=== PATIENT | female | born 1955 | race Caucasian/White ===

== ENCOUNTER → 2017-08-27 | Outpatient (CLI) | payer BC, OTHER ==
[~2017-08-27] MED LIST: COZAAR 25MG25 MG/TAB; GLUCOPHAGE XR500 M1; PRAVACHOL 40MG40 MG PO; TRAMADOL PO; VICTOZA6 MG/ML SC
== END ==
LOC: MC.RAD 13:20
DX: Z12.31 Encounter for screening mammogram for malignant neoplasm of breast (principal)

== ENCOUNTER → 2017-11-07 | Outpatient (CLI) | payer BC, OTHER | LOC: COL.VAS 08:40 | DX: Z01.810 Encounter for preprocedural cardiovascular examination (principal); I34.0 Nonrheumatic mitral (valve) insufficiency; I37.1 Nonrheumatic pulmonary valve insufficiency; I44.7 Left bundle-branch block, unspecified; Q21.1 Atrial septal defect; I10 Essential (primary) hypertension ==

== ENCOUNTER → 2018-10-21 | Outpatient (CLI) | payer BC, OTHER | LOC: MC.RAD 10:42 | DX: Z12.31 Encounter for screening mammogram for malignant neoplasm of breast (principal); N63.10 Unspecified lump in the right breast, unspecified quadrant; N63.20 Unspecified lump in the left breast, unspecified quadrant ==

== ENCOUNTER → 2019-12-21 | Outpatient (CLI) | payer OTHER | LOC: MC.RAD 14:54 | DX: Z12.31 Encounter for screening mammogram for malignant neoplasm of breast (principal) ==

== ENCOUNTER → 2021-10-10 | Outpatient (CLI) | payer OTHER | LOC: MC.RAD 08-27 13:30 | DX: Z12.31 Encounter for screening mammogram for malignant neoplasm of breast (principal); N60.12 Diffuse cystic mastopathy of left breast; N64.9 Disorder of breast, unspecified ==

== ENCOUNTER → 2022-04-18 | Outpatient (CLI) | payer OTHER | LOC: MC.RAD 09:06 | DX: N60.02 Solitary cyst of left breast (principal) ==

== ENCOUNTER → 2022-11-28 | Outpatient (CLI) | payer MEDICARE, BC | LOC: MC.RAD 09:12 | DX: Z12.31 Encounter for screening mammogram for malignant neoplasm of breast (principal) ==

== ENCOUNTER 2023-10-29 10:00 | Outpatient (RCR) | payer MEDICARE, BC ==
[~2023-10-29 10:00] MED LIST changes: +ASPIRIN 81M81 MG/TA2; +BASAGLAR K100 UNIT/1; +BETIMOL 0.5% OPH5 ML; +CARAFATE 1GM1 G PO; +CELEBREX 200MG200 MG; +CYMBALTA 60MG60 MG; +GLUCOPHAGE1000 MG; +HYZAAR 12.5 MG-1 TAB; +MAGNESIUM CITR100 MG; +NATURAL FISH1200 MG; +NEPHRON FA TAB1 EACH; +PRILOTC PO; +SINGULAIR 110 MG/TAB; +THE MEDICINE S200 M2; +XALATAN EYE DROPS
== END 2023-11-02 | disposition home or self-care (01) ==
LOC: PT.GENESIS
DX: M62.830 Muscle spasm of back (principal)

== ENCOUNTER 2023-12-15 14:30 | Outpatient (RCR) | payer MEDICARE, BC ==
[2024-02-02] MEDS ORDERED: HYZAAR 12.5 MG-1 TAB PO (09:01)
[2024-02-02] MEDS ORDERED: NORVASC 5MG5 MG/TAB PO (09:02)
[2024-02-02] MEDS ORDERED: GLUCOPHAGE500 MG/TAB PO (09:03)
[2024-02-02] MEDS ORDERED: BASAGLAR K100 UNIT/1 SQ (09:04)
[2024-02-02] MEDS ORDERED: SINGULAIR 110 MG/TAB PO (09:04)
[2024-02-02] MEDS ORDERED: XALATAN EYE DROPS OD (09:05)
[2024-02-02] MEDS ORDERED: ISTALOL 2.5 ML2.5 ML OD (09:06)
[2024-02-02] MEDS ORDERED: ACTIVELLA TABLE1 TAB PO (09:07)
[2024-02-02] MEDS ORDERED: CELEBREX 200MG200 MG PO (09:08)
[2024-02-02] MEDS ORDERED: PRILOSEC 20MG20 MG PO (09:09)
[2024-02-02] MEDS ORDERED: CYMBALTA 60MG60 MG PO (09:09)
[2024-02-02] MEDS ORDERED: OZEMPIC0.25 MG/02 SQ (09:10)
[2024-02-02] MEDS ORDERED: VITAMIN D250 MCG PO (09:12)
[2024-02-02] MEDS ORDERED: THE MEDICINE S200 M2 PO (09:12)
[2024-02-02] MEDS ORDERED: B-121000 MCG PO (09:13)
[2024-02-02] MEDS ORDERED: MAGNESIUM GLYC100 MG PO (09:14)
[2024-02-02] MEDS ORDERED: MASON NATURAL1200 MG PO (09:14)
[2024-02-02] MEDS ORDERED: ASPIRIN 81M81 MG/TA2 PO (09:15)
== END 2024-01-02 ==
LOC: PT.GENESIS
DX: M62.830 Muscle spasm of back (principal)

== ENCOUNTER → 2023-12-16 | Outpatient (CLI) | payer MEDICARE ==
[~2023-12-16] MED LIST changes: +ACTIVELLA TABLE1 TAB PO; +ASPIRIN 81M81 MG/TA2 PO; +B-121000 MCG PO; +BASAGLAR K100 UNIT/1 SQ; +CELEBREX 200MG200 MG PO; +CYMBALTA 60MG60 MG PO; +GLUCOPHAGE500 MG/TAB PO; +HYZAAR 12.5 MG-1 TAB PO; +ISTALOL 2.5 ML2.5 ML OD; +MAGNESIUM GLYC100 MG PO; +MASON NATURAL1200 MG PO; +NORVASC 5MG5 MG/TAB PO; +OZEMPIC0.25 MG/02 SQ; +PRILOSEC 20MG20 MG PO; +SINGULAIR 110 MG/TAB PO; +THE MEDICINE S200 M2 PO; +VITAMIN D250 MCG PO; +XALATAN EYE DROPS OD
== END ==
LOC: MC.RAD 08:57
DX: Z12.31 Encounter for screening mammogram for malignant neoplasm of breast (principal)

== ENCOUNTER → 2024-04-09 | Outpatient (CLI) | payer MEDICARE, BC | LOC: COL.RAD 08:31 | DX: M51.34 Other intervertebral disc degeneration, thoracic region (principal) ==